=== PATIENT | female | born 1945 | race Caucasian/White ===

== ENCOUNTER 2017-08-30 12:46 | Day surgery (SDC) | payer MEDICARE, BC ==
[2017-08-29 17:40] VITALS: BMI 21.7
[2017-08-30] MEDS ORDERED: ePHEDrine/0.9% NaCl/PF SYRINGE 50 mg/10 ml ONE ×2 (14:07→14:31)
[2017-08-30] MEDS ORDERED: Propofol 200 MG/20 ML VIAL ONE (14:07)
--- NOTE | 2017-08-30 15:40 | OP ---
DATE OF PROCEDURE: 08/30/2017 PROCEDURES: Esophagogastroduodenoscopy with biopsy and esophageal dilation over guidewire. PREOPERATIVE DIAGNOSES: Odynophagia and dysphagia. OPERATIVE NOTE: Informed consent was obtained from the patient. She was sedated with total intrave nous anesthesia. The bite block was placed and the endoscope was advanced easily to the second port ion of the duodenum and retroflexion was performed in the stomach. The esophagus had diffuse patchy erythema, but no focal stricture, fungal esophagitis or erosive esophagitis. She did appear to hav e a somewhat narrowed lumen diffusely. A 16 mm Savary dilator was passed over a guidewire with nikole re resistance at the level the bite block. An 18 mm Savary was attempted; however, again the dilato r could not be passed beyond the bite block due to severe resistance at this level. The stomach was normal including retroflexed views. The pylorus and first and second portions of the duodenum were normal. Esophageal biopsies were taken to rule out eosinophilic esophagitis. IMPRESSION: 1. The esophagus had patchy erythema throughout the esophagus, but no focal stricture, fungal esoph agitis, or erosive esophagitis. It did appear to have a somewhat narrowed lumen diffusely. A 16 mm Savary dilator was passed with no change by second look endoscopy. The 18 mm dilator could not be passed beyond the bite block due to severe resistance at this level. 2. Otherwise normal esophagogastroduodenoscopy. 3. Esophageal biopsies were taken to rule out eosinophilic esophagitis. RECOMMENDATIONS: 1. Await histopathology. 2. Proton pump inhibitor. 3. Follow up in the office in 1 week.
== END 2017-08-30 15:00 | disposition home or self-care (01) ==
LOC: SDC 12:46
PROVIDERS: ATTEND Internal Medicine Gastroenterology
PROC: 0D758ZZ Dilation of Esophagus, Via Natural or Artificial Opening Endoscopic (ICD-10-PCS; principal; 2017-08-30)
DX: K20.9 Esophagitis, unspecified (principal); I48.91 Unspecified atrial fibrillation; R03.0 Elevated blood-pressure reading, without diagnosis of hypertension; J44.9 Chronic obstructive pulmonary disease, unspecified; M19.90 Unspecified osteoarthritis, unspecified site; F17.210 Nicotine dependence, cigarettes, uncomplicated; Z88.1 Allergy status to other antibiotic agents; Z88.8 Allergy status to other drugs, medicaments and biological substances; Z79.899 Other long term (current) drug therapy; Z98.890 Other specified postprocedural states
CPT/HCPCS: 88305; 88312; 88313; J2704

== ENCOUNTER 2017-11-02 16:40 | Outpatient (CLI) | payer MEDICARE, BC ==
[~2017-11-02 16:40] MED LIST: Gadobenate Dimeglumine 529 MG/1 ML (20ML VIAL) ONE
--- NOTE | 2017-11-03 08:39 | MRI ---
MRI LEFT KNEE WITH AND WITHOUT CONTRAST: HISTORY: M71.22, synovial cyst. COMPARISON: Knee radiograph 10/06/17. FINDINGS: Medial Meniscus: There is full-thickness radial tear of the posterior attachment of medial meniscus with 4 mm medial l ateral extrusion. Lateral Meniscus: Intact. The ACL, PCL, MCL, and LCL are all intact. Extensor Mechanism: Quadriceps tendon, patella, and patellar tendon are all intact. Cartilage: There are subchondral cysts in the medial patellar facet and lateral patellar facet with full-thickne ss cartilage fissures. The same is true for the trochlear groove. Medial Compartment: There are a few near-full thickness cartilage fissures posterior weightbearing surface medial femoral condyle. Lateral Compartment: Intact. Bones: There is stress of the medial tibial plateau. No articular surface depression. On the postcontrast image, there is peripheral enhancement of the large popliteal cyst which measures 4 cm in AP x 2.5 cm in transverse x 6.2 cm craniocaudad dimension. IMPRESSION: 1. Full-thickness radial tear posterior radial attachment medial meniscus with gutter extrusion of t he medial meniscus body 4 mm. There is subsequent stress edema throughout the medial tibial plateau. 2. 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 3. Large peripherally enhancing popliteal cyst. POS: [facility]
== END 2017-11-02 16:41 | disposition home or self-care (01) ==
LOC: MRI 16:40
PROVIDERS: ATTEND Orthopaedic Surgery
DX: M71.22 Synovial cyst of popliteal space [Baker], left knee (principal); S83.242A Other tear of medial meniscus, current injury, left knee, initial encounter; R60.0 Localized edema; M22.42 Chondromalacia patellae, left knee
CPT/HCPCS: A9579

== ENCOUNTER 2017-11-14 11:09 | Outpatient (CLI) | payer MEDICARE, BC | END 2017-11-14 11:10 | disposition home or self-care (01) | LOC: BICMAMMO 11:09 | PROVIDERS: ATTEND Obstetrics & Gynecology | DX: Z12.31 Encounter for screening mammogram for malignant neoplasm of breast (principal) | CPT/HCPCS: 77063; 77067 ==

== ENCOUNTER 2018-12-30 13:47 | Emergency (ER) | payer MEDICARE, BC ==
[~2018-12-30 13:47] MED LIST changes: -Gadobenate Dimeglumine 529 MG/1 ML (20ML VIAL) ONE; +ISOVUE-370 76%-LOCM 1 ML ONE
[2018-12-30 14:39] LABS: #Basophils 0.1 thou/uL (0.0-0.2); #Eosinphils 0.2 thou/uL (0.0-0.7); #Lymphocytes 1.9 thou/uL (1.20-3.40); #Monocytes 1.2 thou/uL (0.11-0.59); #Neutrophils 6.5 thou/uL (1.40-6.50); %Eosinophils 1.6 % (0.0-10.0); %Lymphocytes 19.6 % (21.0-51.0); %Neutrophils 65.8 % (42.0-75.0); Hemoglobin 13.1 g/dL (12.0-16.0); Mean Corpuscular HGB CONC 32.7 g/dL (32.0-36.0); Mean Corpuscular Volume 97.7 fL (78.0-98.0); Mean Platelet Volume 8.1 fL (7.4-10.4); Platelet Count 326 thou/uL (130-400); RBC Distribution Width 14.2 % (11.5-14.5); Red Blood Cell (RBC) Count 4.09 mill/uL (4.20-5.40); White Blood Cell (WBC) Count 9.8 thou/uL (4.8-10.8)
[2018-12-30 15:03] LABS: ALT (SGPT) 11 U/L (8-55); AST (SGOT) 14 U/L (5-34); Alkaline Phosphatase 64 U/L (40-150); Anion Gap 14 mmol/L (10-20); BUN (Urea Nitrogen) 14 mg/dL (9.8-20.1); Bilirubin, Total 0.7 mg/dL (0.2-1.2); Calc. Creatinine Clearance 0 mL/min (70-130); Calcium 9.9 mg/dL (7.8-10.44); Carbon Dioxide 29 mmol/L (23-31); Chloride 93 mmol/L (98-107); Estimated GFR-MDRD 72; Globulin 3.4 g/dL (2.4-3.5); Glucose 110 mg/dL (83-110); Potassium 3.8 mmol/L (3.5-5.1); Protein, Total 7.4 g/dL (6.0-8.3); Sodium 132 mmol/L (136-145)
--- NOTE | 2018-12-30 16:39 | RAD ---
AP VIEW CHEST TWO VIEWS ABDOMEN 12/30/18 HISTORY: Right lower quadrant pain with nausea. AP view chest as well as two views abdomen obtained. AP view chest demonstrates areas of lung parenchymal scarring in both upper lobes. Mild pulmonary vas cular congestion seen. No evidence of effusions, pneumonia or pneumothorax seen. Supine and upright views of the abdomen demonstrate abnormal gas pattern to be nonspecific. No eviden ce of obstruction or ileus seen. No dilated loops of bowel seen. No evidence of free intraperitoneal air seen. IMPRESSION: Bilateral apical upper lobe scarring without evidence of acute intrathoracic or intra-abdominal patho logy seen. POS: [facility]
[2018-12-30 16:42] LABS: Bilirubin Negative (Negative); Blood, Urine Trace (Negative); Clarity CLEAR (Clear); Glucose, Urine (Dipstick) Negative (Negative); Leukocyte Negative (Negative); Nitrite Negative (Negative); Protein, Urine (Dipstick) Negative (Neg-Trace); Specific Gravity, Urine 1.009 (1.002-1.036); Urobilinogen 0.2 mg/dL (0.2-1.0)
[2018-12-30 16:45] LABS: Bacteria/HPF None Seen HPF (None Seen); Hyaline Casts/LPF 0-3 HYALINE CAST LPF (0-3 Hyaline); RBC/HPF 0-3 HPF (0-3); Squamous Epithelial None Seen HPF (0-3); WBC/HPF None Seen HPF (0-3)
--- NOTE | 2018-12-30 20:52 | CT ---
CONTRAST ENHANCED CT IMAGES ABDOMEN AND PELVIS: 12/30/18 HISTORY: Pain. Complaining of right lower quadrant pain since Tuesday. Contrast enhanced CT images of the abdomen and pelvis is obtained after administration of IV contrast . Unfortunately oral contrast was not given. This does decrease sensitivity for detection of patholog y. The lung bases are unremarkable. There appears to be some areas of scarring or atelectasis in the rig ht lower lobe posteriorly. No evidence of free intraperitoneal air seen. The liver and spleen are unremarkable. Multiple hypoden se areas seen in the hepatic parenchyma compatible with hepatic cysts. These were present on the prev ious exam and are unchanged. The gallbladder is unremarkable. The pancreas is unremarkable with no evidence of definite masses. Adrenal glands unremarkable. Some cortical cysts seen in both kidneys. No evidence of periaortic lymphadenopathy seen. Calcifications seen in the abdominal aorta. No signif icant evidence of small bowel distention seen. Normal appendix is visualized. There is some mild thic kening of the descending colon in the region of the splenic flexure and proximal descending colon. There is a uterine area of soft tissue density measuring 4.8 x 5.9 cm. This may represent an angulate d anteverted predominantly right sided uterus versus right ovarian mass. Correlate with history. If t he patient has had a previous hysterectomy, then this represents a mass, otherwise, I suspect that it likely represents the uterus. Osseous structures are intact. IMPRESSION: No significant evidence of intra-abdominal or pelvic abnormality seen except for above mentioned pelv ic soft tissue density. POS: [facility]
== END 2018-12-30 19:13 | disposition home or self-care (01) ==
LOC: ERS 13:47
DX: R10.31 Right lower quadrant pain (principal); K21.9 Gastro-esophageal reflux disease without esophagitis; I10 Essential (primary) hypertension; I48.91 Unspecified atrial fibrillation; E05.90 Thyrotoxicosis, unspecified without thyrotoxic crisis or storm; F41.9 Anxiety disorder, unspecified; F17.210 Nicotine dependence, cigarettes, uncomplicated; Z79.899 Other long term (current) drug therapy; Z79.82 Long term (current) use of aspirin
CPT/HCPCS: 36415; 74022; 74177; 80053; 81003; 81015; 83605; 83690; 85025; Q9966

== ENCOUNTER 2020-01-14 13:21 | Outpatient (CLI) | payer MEDICARE, BC ==
--- NOTE | 2020-01-14 13:59 | BD ---
EXAM: Bone densitometry using DEXA HISTORY: 74 yo female. Screening for postmenopausal osteoporosis FINDINGS: L1--bone mineral density 0.730 g/sq cm; T score -2.4 ; Z score -0.1 L2--bone mineral density 0.897 g/sq cm; T score -1.2 ; Z score 1.3 L3--bone mineral density 0.979 g/sq cm; T score -1.0 ; Z score 1.7 L4--bone mineral density 0.913 g/sq cm; T score -1.3 ; Z score 1.3 Total L1-L4--bone mineral density 0.882 g/sq cm; T score -1.5 ; Z score 1.0 Left femoral neck--bone mineral density0.633; T score -1.9 ; Z score 0.2 Total proximal left femur--bone mineral density 0.734; T score -1.7 ; Z score 0.2 The 10 year fracture risk for a major osteoporotic fracture is 19% and for a hip fracture is 7.4%. IMPRESSION: Osteopenia
--- NOTE | 2020-01-14 14:29 | MMO ---
Bilateral MAMMO Bilat Diag [facility]. CLINICAL HISTORY: Patient is 74 years old and is seen for diagnostic exam and lump or thickening in the left breast. The patient has no family history of breast cancer. The patient has no personal history of cancer. VIEWS: The views performed were: bilateral craniocaudal with tomosynthesis and bilateral mediolateral oblique with tomosynthesis. FILMS COMPARED: The present examination has been compared to prior imaging studies performed at [facility] on 11/04/2015, 11/10/2016, 11/14/2017 and 01/14/2020. This study has been interpreted with the assistance of computer-aided detection. MAMMOGRAM FINDINGS: There are scattered fibroglandular densities. There are stable benign appearing calcifications seen in both breasts. There are no suspicious masses, suspicious calcifications, or new areas of architectural distortion. IMPRESSION: THERE IS NO MAMMOGRAPHIC EVIDENCE OF MALIGNANCY. A ROUTINE FOLLOW-UP MAMMOGRAM IN 1 YEAR IS RECOMMENDED. THE RESULTS OF THIS EXAM WERE SENT TO THE PATIENT. ACR BI-RADS Category 2 - Benign finding MAMMOGRAPHY NOTE: 1. A negative mammogram report should not delay a biopsy if a dominant of clinically suspicious mass is present. 2. Approximately 10% to 15% of breast cancers are not detected by mammography. 3. Adenosis and dense breasts may obscure an underlying neoplasm. Reported by: JESSICA TEJEDA MD Electonically Signed: [id number]
--- NOTE | 2020-01-14 14:34 | ULT ---
LEFT BREAST ULTRASOUND: COMPARISON: Mammogram of 01/14/2020. HISTORY: Palpable mass in the 6 o'clock position of the left breast per the ordering clinician. TECHNIQUE: Multiplanar, anguiano scale, and color Doppler images were obtained in a left breast ultrasound. FINDINGS: No suspicious mass or shadowing was seen in the left breast. At the area of palpable abnormality, th ere is normal-appearing breast parenchyma. IMPRESSION: BIRADS category 1 - negative. Annual screening mammography is recommended.
== END 2020-01-14 13:22 | disposition home or self-care (01) ==
LOC: BICMAMMO 13:21
PROVIDERS: ATTEND Obstetrics & Gynecology
DX: Z13.820 Encounter for screening for osteoporosis (principal); N63.20 Unspecified lump in the left breast, unspecified quadrant; M85.89 Other specified disorders of bone density and structure, multiple sites
CPT/HCPCS: 76642; 77066; 77080; G0279

== ENCOUNTER 2023-10-11 11:55 | Outpatient (CLI) | payer MEDICARE, BC | END 2023-10-11 11:56 | disposition home or self-care (01) | LOC: BICMAMMO 11:55 | PROVIDERS: ATTEND Family Medicine | DX: Z12.31 Encounter for screening mammogram for malignant neoplasm of breast (principal) | CPT/HCPCS: 77063; 77067 ==

== ENCOUNTER 2024-05-01 16:22 | Inpatient (IN) | payer MEDICARE, BC ==
[2024-05-01] MEDS ORDERED: Acetaminophen 650 MG Suppository PR PRN (22:40)
[2024-05-01] MEDS ORDERED: Ondansetron PF 4 MG/2 ML Vial IVP PRN (22:40)
[2024-05-01] MEDS ORDERED: Ondansetron ODT 4 MG TAB PO PRN (22:40)
[2024-05-01] MEDS: Acetaminophen/Codeine 30-300mg Tablet PO PRN (23:19)
[2024-05-01 23:39] VITALS: BMI 16.9
[2024-05-01 23:39] LABS: #Basophils 0.04 10x3/uL (0.0-0.2); %Basophils 0.3 % (0.0-1.0); %Eosinophils 2.4 % (0.0-10.0); %Lymphocytes 13.3 % (21.0-51.0); %Monocytes 12.9 % (0.0-10.0); %Neutrophils 70.7 % (42.0-75.0); Hematocrit 40.1 % (36.0-47.0); Hemoglobin 13.8 g/dL (12.0-16.0); Mean Corpuscular HGB CONC 34.4 g/dL (32.0-36.0); Mean Corpuscular Volume 95.9 fL (78.0-98.0); Mean Platelet Volume 10.8 fL (7.4-10.4); Platelet Count 279 10x3/uL (130-400); RBC Distribution Width 14.7 % (11.5-14.5); Red Blood Cell (RBC) Count 4.18 mill/uL (4.20-5.40)
[2024-05-02 00:10] LABS: Anion Gap 15 mmol/L (10-20); BUN (Urea Nitrogen) 17 mg/dL (9.8-20.1); Calc. Creatinine Clearance 48 mL/min (70-130); Calcium 9.4 mg/dL (7.8-10.44); Carbon Dioxide 22 mmol/L (23-31); Chloride 101 mmol/L (98-107); Estimated GFR 88; Glucose 118 mg/dL (83-110); Potassium 4.3 mmol/L (3.5-5.1); Sodium 134 mmol/L (136-145)
[2024-05-02 06:23] LABS: Troponin I 0.014 ng/mL (< 0.028)
[2024-05-02] MEDS: Famotidine 20 MG TAB PO SCH (08:46)
[2024-05-02] MEDS: Lisinopril 10 MG TAB PO SCH (10:12)
[2024-05-02] MEDS: Flecainide 50 MG TAB PO SCH (10:13)
[2024-05-02] MEDS: Atenolol 25 MG TAB PO SCH (10:13)
[2024-05-02] MEDS: Apixaban 2.5 MG TAB PO SCH (10:13)
[2024-05-02] MEDS: Famotidine/PF 20 mg/2ml Vial SLOW IVP SCH (10:17)
[2024-05-02] MEDS: NIFEdipine XL 30 MG ER.TAB PO SCH (18:09)
[2024-05-03 05:47] LABS: #Basophils 0.03 10x3/uL (0.0-0.2); #Eosinphils Less than 0.03 10x3/uL (0.0-0.7); %Basophils 0.2 % (0.0-1.0); %Eosinophils 0.1 % (0.0-10.0); %Lymphocytes 4.7 % (21.0-51.0); %Neutrophils 83.6 % (42.0-75.0); Hematocrit 36.6 % (36.0-47.0); Hemoglobin 12.8 g/dL (12.0-16.0); Mean Corpuscular Hemoglobin 32.1 pg (27.0-31.0); Mean Corpuscular Volume 91.7 fL (78.0-98.0); Mean Platelet Volume 11.3 fL (7.4-10.4); Platelet Count 283 10x3/uL (130-400); RBC Distribution Width 14.5 % (11.5-14.5); Red Blood Cell (RBC) Count 3.99 mill/uL (4.20-5.40)
[2024-05-03 06:07] LABS: Anion Gap 15 mmol/L (10-20); BUN (Urea Nitrogen) 16 mg/dL (9.8-20.1); Calc. Creatinine Clearance 46 mL/min (70-130); Calcium 9.1 mg/dL (7.8-10.44); Carbon Dioxide 22 mmol/L (23-31); Chloride 101 mmol/L (98-107); Estimated GFR 87; Glucose 131 mg/dL (83-110); Sodium 134 mmol/L (136-145)
[2024-05-03] MEDS: Acetaminophen 325 MG TAB PO PRN (06:48)
[2024-05-03 07:13] LABS: Magnesium 1.8 mg/dL (1.6-2.6)
[2024-05-03] MEDS ORDERED: Lisinopril 10 MG TAB PO SCH (09:00)
[2024-05-03] MEDS: NIFEdipine XL 30 MG ER.TAB PO SCH (09:24)
[2024-05-03] MEDS: Flecainide Acetate 100 MG TAB PO SCH (09:24)
[2024-05-03] MEDS: Lactated Ringer's 1,000 ML IV SCH (16:00)
[2024-05-03] MEDS: Amiodarone 150 MG, Admixture Fee 1 EACH in Dextrose 5% in Water 100 ML IVPB SCH (19:41)
[2024-05-03 19:58] LABS: ALT (SGPT) 19 U/L (8-55); AST (SGOT) 20 U/L (5-34); Albumin 2.9 g/dL (3.4-4.8); Alkaline Phosphatase 52 U/L (40-110); Bilirubin, Direct 0.5 mg/dL (0.1-0.3); Bilirubin, Total 1.4 mg/dL (0.2-1.2); Protein, Total 7.1 g/dL (5.8-8.1)
[2024-05-03] MEDS: Amiodarone 450 MG, Admixture Fee 1 EACH in Dextrose 5% in Water 250 ML IVPB SCH (20:05)
[2024-05-03] MEDS: Lorazepam 0.5 MG TAB PO SCH (22:25)
[2024-05-04 01:03] LABS: Bacteria/HPF 4+ HPF (None Seen); Bilirubin Negative (Negative); Blood, Urine 3+ (Negative); CAUTI Indications for Culture Dysuria,urgency,freq; Clarity Extra Turbid (Clear); Glucose, Urine (Dipstick) 70 mg/dL (Negative); Ketone, Urine 10 mg/dL (Negative); Leukocyte Negative Leu/uL (Negative); Nitrite Negative (Negative); Protein, Urine (Dipstick) 300 mg/dL (Neg-Trace); RBC/HPF Greater than 50 HPF (0-3); Specific Gravity, Urine 1.024 (1.002-1.036); Squamous Epithelial None Seen HPF (0-3); WBC/HPF Greater than 50 HPF (0-3)
[2024-05-04 01:05] LABS: Urine Culture Reflex Yes Yes
[2024-05-04] MEDS ORDERED: Electrolyte Replacement Protocol FS SCH (01:45)
[2024-05-04] MEDS: OLANZapine 10 MG VIAL IM SCH ×3 (02:00→10:30)
[2024-05-04] MEDS: Sterile Water 10 ML VIAL FS SCH (02:00)
[2024-05-04] MEDS: cefTRIAXone\\ROCEPHIN 1 GM in Sodium Chloride 0.9% 100 ML IVPB SCH (02:11)
[2024-05-04 04:40] LABS: #Basophils 0.05 10x3/uL (0.0-0.2); %Basophils 0.2 % (0.0-1.0); %Eosinophils 0.2 % (0.0-10.0); %Lymphocytes 6.1 % (21.0-51.0); %Neutrophils 79.8 % (42.0-75.0); Hemoglobin 13.4 g/dL (12.0-16.0); Mean Corpuscular HGB CONC 35.3 g/dL (32.0-36.0); Mean Corpuscular Hemoglobin 32.4 pg (27.0-31.0); Mean Corpuscular Volume 91.8 fL (78.0-98.0); Mean Platelet Volume 11.4 fL (7.4-10.4); Platelet Count 298 10x3/uL (130-400); RBC Distribution Width 14.4 % (11.5-14.5); Red Blood Cell (RBC) Count 4.14 mill/uL (4.20-5.40)
[2024-05-04 05:00] LABS: Anion Gap 17 mmol/L (10-20); BUN (Urea Nitrogen) 14 mg/dL (9.8-20.1); Calc. Creatinine Clearance 46 mL/min (70-130); Carbon Dioxide 19 mmol/L (23-31); Chloride 97 mmol/L (98-107); Estimated GFR 87; Glucose 144 mg/dL (83-110); Magnesium 1.7 mg/dL (1.6-2.6); Potassium 3.6 mmol/L (3.5-5.1); Sodium 129 mmol/L (136-145)
[2024-05-04] MEDS: Magnesium 2 GM/50 ML(in water) 2 GM in Premix 1 BAG IVPB SCH (05:42)
[2024-05-04] MEDS: Amiodarone 150 MG, Admixture Fee 1 EACH in Dextrose 5% in Water 100 ML IVPB SCH (09:12)
[2024-05-04] MEDS: Nicotine 14 MG PATCH TD SCH (10:57)
[2024-05-04] MEDS: Haloperidol Lactate 5 MG/ML VIAL SLOW IVP SCH (17:09)
[2024-05-04] MEDS: Hyaluronidase, Human Recomb. 150 UNITS/ML VIAL SC SCH (17:09)
[2024-05-04] MEDS: QUEtiapine 25 MG TAB PO SCH (20:22)
[2024-05-05] MEDS: Sodium Chloride 0.9% 500 ML IV SCH (01:25)
[2024-05-05] MEDS: cefTRIAXone\\ROCEPHIN 1 GM in Sodium Chloride 0.9% 100 ML IVPB SCH (02:07)
[2024-05-05 04:54] LABS: #Basophils 0.05 10x3/uL (0.0-0.2); %Basophils 0.4 % (0.0-1.0); %Eosinophils 2.4 % (0.0-10.0); %Lymphocytes 10.5 % (21.0-51.0); %Monocytes 13.4 % (0.0-10.0); %Neutrophils 72.9 % (42.0-75.0); Hematocrit 34.1 % (36.0-47.0); Hemoglobin 11.9 g/dL (12.0-16.0); Mean Corpuscular HGB CONC 34.9 g/dL (32.0-36.0); Mean Corpuscular Hemoglobin 32.2 pg (27.0-31.0); Mean Corpuscular Volume 92.2 fL (78.0-98.0); Mean Platelet Volume 10.7 fL (7.4-10.4); Platelet Count 325 10x3/uL (130-400); RBC Distribution Width 14.4 % (11.5-14.5)
[2024-05-05 05:15] LABS: Anion Gap 16 mmol/L (10-20); BUN (Urea Nitrogen) 13 mg/dL (9.8-20.1); Calc. Creatinine Clearance 45 mL/min (70-130); Calcium 8.8 mg/dL (7.8-10.44); Carbon Dioxide 20 mmol/L (23-31); Chloride 101 mmol/L (98-107); Estimated GFR 85; Glucose 132 mg/dL (83-110); Potassium 3.6 mmol/L (3.5-5.1); Sodium 133 mmol/L (136-145)
[2024-05-05] MEDS: Magnesium 2 GM/50 ML(in water) 2 GM in Premix 1 BAG IVPB SCH (11:28)
[2024-05-05] MEDS: dilTIAZem 30 MG TAB PO SCH ×2 (17:45→19:49)
[2024-05-06 05:54] LABS: #Basophils 0.04 10x3/uL (0.0-0.2); %Basophils 0.3 % (0.0-1.0); %Eosinophils 2.7 % (0.0-10.0); %Lymphocytes 10.4 % (21.0-51.0); %Monocytes 12.7 % (0.0-10.0); %Neutrophils 73.1 % (42.0-75.0); Hematocrit 31.5 % (36.0-47.0); Hemoglobin 10.9 g/dL (12.0-16.0); Mean Corpuscular HGB CONC 34.6 g/dL (32.0-36.0); Mean Corpuscular Hemoglobin 32.6 pg (27.0-31.0); Mean Corpuscular Volume 94.3 fL (78.0-98.0); Mean Platelet Volume 10.6 fL (7.4-10.4); Platelet Count 409 10x3/uL (130-400); RBC Distribution Width 14.5 % (11.5-14.5); Red Blood Cell (RBC) Count 3.34 mill/uL (4.20-5.40)
[2024-05-06 06:16] LABS: Anion Gap 14 mmol/L (10-20); BUN (Urea Nitrogen) 15 mg/dL (9.8-20.1); Calc. Creatinine Clearance 43 mL/min (70-130); Calcium 8.6 mg/dL (7.8-10.44); Carbon Dioxide 21 mmol/L (23-31); Chloride 101 mmol/L (98-107); Estimated GFR 75; Glucose 106 mg/dL (83-110); Potassium 3.5 mmol/L (3.5-5.1); Sodium 132 mmol/L (136-145)
[2024-05-06] MEDS: Potassium Chloride 20 MEQ TAB PO SCH (09:00)
[2024-05-06] MEDS: Azithromycin 500 MG in Sodium Chloride 0.9% 250 ML 250 ML IVPB SCH (13:29)
[2024-05-07] MEDS: Midodrine HCl 5 MG TAB PO SCH (02:42)
[2024-05-07 06:14] LABS: #Basophils 0.07 10x3/uL (0.0-0.2); %Basophils 0.8 % (0.0-1.0); %Eosinophils 6.4 % (0.0-10.0); %Lymphocytes 14.4 % (21.0-51.0); %Neutrophils 65.7 % (42.0-75.0); Hemoglobin 10.8 g/dL (12.0-16.0); Mean Corpuscular HGB CONC 33.8 g/dL (32.0-36.0); Mean Corpuscular Hemoglobin 32.1 pg (27.0-31.0); Mean Corpuscular Volume 95.2 fL (78.0-98.0); Mean Platelet Volume 11.8 fL (7.4-10.4); Platelet Count 290 10x3/uL (130-400); RBC Distribution Width 14.8 % (11.5-14.5); Red Blood Cell (RBC) Count 3.36 mill/uL (4.20-5.40)
[2024-05-07 06:33] LABS: Anion Gap 13 mmol/L (10-20); BUN (Urea Nitrogen) 10 mg/dL (9.8-20.1); Calc. Creatinine Clearance 57 mL/min (70-130); Calcium 8.2 mg/dL (7.8-10.44); Carbon Dioxide 20 mmol/L (23-31); Chloride 103 mmol/L (98-107); Estimated GFR 90; Glucose 78 mg/dL (83-110); Potassium 3.5 mmol/L (3.5-5.1); Sodium 132 mmol/L (136-145)
[2024-05-07] MEDS: Potassium Chloride 20 MEQ TAB PO SCH (08:18)
[2024-05-07] MEDS: Amiodarone 200 MG TAB PO SCH ×3 (08:19→21:00)
[2024-05-07 19:35] VITALS: BMI 17.9
[2024-05-08 04:21] LABS: #Basophils 0.05 10x3/uL (0.0-0.2); %Basophils 0.4 % (0.0-1.0); %Eosinophils 5.8 % (0.0-10.0); %Lymphocytes 15.2 % (21.0-51.0); %Monocytes 13.3 % (0.0-10.0); %Neutrophils 64.5 % (42.0-75.0); Hematocrit 31.6 % (36.0-47.0); Hemoglobin 10.7 g/dL (12.0-16.0); Mean Corpuscular HGB CONC 33.9 g/dL (32.0-36.0); Mean Corpuscular Hemoglobin 32.5 pg (27.0-31.0); Platelet Count 410 10x3/uL (130-400); RBC Distribution Width 14.7 % (11.5-14.5); Red Blood Cell (RBC) Count 3.29 mill/uL (4.20-5.40)
[2024-05-08 04:34] LABS: Anion Gap 12 mmol/L (10-20); BUN (Urea Nitrogen) 10 mg/dL (9.8-20.1); Calc. Creatinine Clearance 52 mL/min (70-130); Calcium 8.3 mg/dL (7.8-10.44); Carbon Dioxide 26 mmol/L (23-31); Chloride 104 mmol/L (98-107); Estimated GFR 88; Glucose 79 mg/dL (83-110); Potassium 4.3 mmol/L (3.5-5.1); Sodium 138 mmol/L (136-145)
[2024-05-08] MEDS: Aspirin 81 mg Enteric Coated Tablet PO SCH (08:50)
[2024-05-08] MEDS: Levothyroxine Sodium 50 MCG TAB PO SCH (08:50)
[2024-05-08] MEDS: Amiodarone 200 MG TAB PO SCH (08:50)
[2024-05-08] MEDS: Magnesium Oxide 400 MG TAB PO SCH (08:50)
[2024-05-08] MEDS: Rosuvastatin 20 MG TAB PO SCH (20:48)
[2024-05-09 04:41] LABS: #Basophils 0.04 10x3/uL (0.0-0.2); %Basophils 0.4 % (0.0-1.0); %Eosinophils 4.3 % (0.0-10.0); %Lymphocytes 14.9 % (21.0-51.0); %Monocytes 11.8 % (0.0-10.0); %Neutrophils 67.8 % (42.0-75.0); Hematocrit 31.8 % (36.0-47.0); Hemoglobin 10.8 g/dL (12.0-16.0); Mean Corpuscular Hemoglobin 31.7 pg (27.0-31.0); Mean Corpuscular Volume 93.3 fL (78.0-98.0); Mean Platelet Volume 10.2 fL (7.4-10.4); Platelet Count 424 10x3/uL (130-400); RBC Distribution Width 14.8 % (11.5-14.5); Red Blood Cell (RBC) Count 3.41 mill/uL (4.20-5.40)
[2024-05-09 04:59] LABS: Anion Gap 11 mmol/L (10-20); BUN (Urea Nitrogen) 11 mg/dL (9.8-20.1); Calc. Creatinine Clearance 50 mL/min (70-130); Calcium 8.4 mg/dL (7.8-10.44); Carbon Dioxide 27 mmol/L (23-31); Chloride 105 mmol/L (98-107); Estimated GFR 87; Glucose 86 mg/dL (83-110); Potassium 4.2 mmol/L (3.5-5.1); Sodium 139 mmol/L (136-145)
[2024-05-09] MEDS: Levothyroxine Sodium 50 MCG TAB PO SCH (06:01)
[2024-05-09 17:22] VITALS: BP 175/80; TEMP 98
== END 2024-05-09 21:49 | DRG 308 ==
LOC: 2NO 20:36
PROVIDERS: ADMIT Family Medicine; ATTEND Internal Medicine
DX: I48.19 Other persistent atrial fibrillation (principal); J18.9 Pneumonia, unspecified organism; J44.0 Chronic obstructive pulmonary disease with (acute) lower respiratory infection; N39.0 Urinary tract infection, site not specified; R64 Cachexia; Z68.1 Body mass index [BMI] 19.9 or less, adult; J91.8 Pleural effusion in other conditions classified elsewhere; E44.1 Mild protein-calorie malnutrition; E78.5 Hyperlipidemia, unspecified; E03.9 Hypothyroidism, unspecified; R41.0 Disorientation, unspecified; D72.829 Elevated white blood cell count, unspecified; K21.9 Gastro-esophageal reflux disease without esophagitis; F17.210 Nicotine dependence, cigarettes, uncomplicated; I25.10 Atherosclerotic heart disease of native coronary artery without angina pectoris; I10 Essential (primary) hypertension; R33.9 Retention of urine, unspecified; E11.9 Type 2 diabetes mellitus without complications; Z88.8 Allergy status to other drugs, medicaments and biological substances; Z79.890 Hormone replacement therapy; Z79.899 Other long term (current) drug therapy; Z79.51 Long term (current) use of inhaled steroids; Z79.82 Long term (current) use of aspirin; Z86.73 Personal history of transient ischemic attack (TIA), and cerebral infarction without residual deficits
CPT/HCPCS: 36415; 71045; 80048; 80076; 81001; 83735; 84443; 84484; 85025; 87086; 93005; 93010; J0282; J0456; J0696; J1630; J3473; J3475; J3490; J7030; J7050; J7070; J7120; S0028

== ENCOUNTER 2024-08-30 14:01 | Outpatient (CLI) | payer MEDICARE, BC ==
[~2024-08-30 14:01] MED LIST changes: -ISOVUE-370 76%-LOCM 1 ML ONE; +Iopamidol 370 76% 100 ML VIAL ONE
== END 2024-08-30 14:02 | disposition home or self-care (01) ==
LOC: BICCT 14:01
PROVIDERS: ATTEND Urology
DX: R31.29 Other microscopic hematuria (principal); S32.502A Unspecified fracture of left pubis, initial encounter for closed fracture; R91.1 Solitary pulmonary nodule; K59.00 Constipation, unspecified; N28.1 Cyst of kidney, acquired
CPT/HCPCS: 36415; 74178; 82565

== ENCOUNTER 2024-11-07 12:52 | Outpatient (CLI) | payer MEDICARE, BC ==
[2024-11-07 14:09] LABS: #Basophils 0.06 10x3/uL (0.0-0.2); %Basophils 0.8 % (0.0-1.0); %Eosinophils 1.3 % (0.0-10.0); %Lymphocytes 10.1 % (21.0-51.0); %Monocytes 14.6 % (0.0-10.0); %Neutrophils 72.9 % (42.0-75.0); Hematocrit 36.6 % (36.0-47.0); Hemoglobin 11.5 g/dL (12.0-16.0); Mean Corpuscular HGB CONC 31.4 g/dL (32.0-36.0); Mean Corpuscular Hemoglobin 26.3 pg (27.0-31.0); Mean Corpuscular Volume 83.8 fL (78.0-98.0); Mean Platelet Volume 10.2 fL (7.4-10.4); Platelet Count 363 10x3/uL (130-400); RBC Distribution Width 21.5 % (11.5-14.5); Red Blood Cell (RBC) Count 4.37 mill/uL (4.20-5.40)
[2024-11-07 14:25] LABS: Calc. Creatinine Clearance 0 mL/min (70-130); Estimated GFR 47
[2024-11-07 14:26] LABS: ALT (SGPT) 54 U/L (8-55); AST (SGOT) 46 U/L (5-34); Albumin 3.5 g/dL (3.4-4.8); Alkaline Phosphatase 65 U/L (40-110); Anion Gap 14 mmol/L (10-20); BUN (Urea Nitrogen) 15 mg/dL (9.8-20.1); Bilirubin, Total 0.8 mg/dL (0.2-1.2); Carbon Dioxide 20 mmol/L (23-31); Chloride 107 mmol/L (98-107); Globulin 4.2 g/dL (2.4-3.5); Glucose 144 mg/dL (83-110); Potassium 3.7 mmol/L (3.5-5.1); Protein, Total 7.7 g/dL (5.8-8.1); Sodium 137 mmol/L (136-145)
[2024-11-07 14:28] LABS: INR-International Normal Ratio 1.3; PTT 26.1 sec (22.9-36.1); Prothrombin Time 16.3 sec (12.0-14.7)
== END 2024-11-07 12:53 | disposition home or self-care (01) ==
LOC: LABBT 12:52
PROVIDERS: ATTEND Internal Medicine Cardiovascular Disease
DX: Z01.812 Encounter for preprocedural laboratory examination (principal); I48.0 Paroxysmal atrial fibrillation; Z91.81 History of falling
CPT/HCPCS: 80053; 85025; 85610; 85730; 93005; 93010

== ENCOUNTER 2024-11-07 13:00 | Inpatient (IN) | payer MEDICARE, BC ==
[2024-11-07 13:21] VITALS: BMI 18.8
[2024-11-12] MEDS ORDERED: CEFAZOLIN 1 GM VIAL ONE (09:00)
[2024-11-12] MEDS ORDERED: Heparin 10,000 UNITS/ 10 ML VIAL ONE (09:00)
[2024-11-12] MEDS ORDERED: Protamine Sulfate 50 MG/5 ML VIAL ONE (09:00)
[2024-11-12] MEDS ORDERED: PROPOFOL 20 ML ONE (09:39)
[2024-11-12] MEDS ORDERED: fentaNYL 50 mcg/mL 1 mL Vial ONE (09:39)
[2024-11-12] MEDS ORDERED: SUGAMMADEX SODIUM 200 MG/2 ML VIAL ONE (09:39)
[2024-11-12] MEDS ORDERED: Phenylephrine 40 MG/NS 250 ML 250 ML ONE (09:39)
[2024-11-12] MEDS ORDERED: Rocuronium Bromide 50 MG/5 ML VIAL ONE (09:39)
[2024-11-12] MEDS ORDERED: Iopamidol 370 76% 100 ML VIAL ONE (09:54)
[2024-11-12] MEDS ORDERED: Lidocaine 1% PF 5 ML VIAL ONE (10:02)
== END 2024-11-12 15:24 | disposition home or self-care (01) | DRG 274 ==
LOC: SURG A 11-12 07:15
PROVIDERS: ADMIT Internal Medicine Cardiovascular Disease; ATTEND Internal Medicine Cardiovascular Disease
PROC: B24BZZ4 Ultrasonography of Heart with Aorta, Transesophageal (ICD-10-PCS; principal; 2024-11-12)
PROC: 02L73DK Occlusion of Left Atrial Appendage with Intraluminal Device, Percutaneous Approach (ICD-10-PCS; 2024-11-12)
DX: I48.0 Paroxysmal atrial fibrillation (principal); Z00.6 Encounter for examination for normal comparison and control in clinical research program; F03.90 Unspecified dementia, unspecified severity, without behavioral disturbance, psychotic disturbance, mood disturbance, and anxiety; I10 Essential (primary) hypertension; Z79.82 Long term (current) use of aspirin; Z79.899 Other long term (current) drug therapy; Z88.1 Allergy status to other antibiotic agents; Z88.8 Allergy status to other drugs, medicaments and biological substances; Z87.891 Personal history of nicotine dependence; I25.10 Atherosclerotic heart disease of native coronary artery without angina pectoris; E11.9 Type 2 diabetes mellitus without complications; E78.5 Hyperlipidemia, unspecified; Z98.890 Other specified postprocedural states
CPT/HCPCS: 33340; 85347; 86850; 86900; 86901; 93306; 93312; C1759; C1760; C1889; C1894; J0690; J1644; J2704; J2720; J3010; Q9967